=== PATIENT | female | born 1985 | race Caucasian/White ===

== ENCOUNTER 2021-07-12 20:59 | Emergency (ER) | payer BC ==
[2021-07-12 21:30] VITALS: RESP 18; TEMP 98.6
[2021-07-12] MEDS ORDERED: SODIUM CHLORIDE 0.9% 1,000 ML IV STA (21:56)
[2021-07-12] MEDS ORDERED: ONDANSETRON 4 MG/2 ML VIAL IVP STA (21:56)
--- NOTE | 2021-07-12 22:07 | ED ---
General Adult HPI - General Chief complaint: Dizziness Stated complaint: Dizzy,Vomiting Time Seen by Provider: 07/12/21 21:41 Source: patient, RN notes reviewed Mode of arrival: wheelchair Limitations: no limitations - History of Present Illness Initial comments: 35-year-old female presents to the emergency department for evaluation of dizziness, onset this morning. Patient states she woke up feeling mildly dizzy, but states it improved throughout the day. States this evening she attempted to lay down in bed and her symptoms recurred. Describes feeling as if the room was spinning around her. Patient reports feeling like she needed to grasp the sheets on either side of her in order to remain still. States her symptoms were accompanied by profound nausea and one episode of vomiting. Denies fever, chills, headache, blurry vision, chest pain, difficulty breathing, shortness of breath, palpitations, abdominal pain, diarrhea, dysuria or hematuria. No new medications, sick exposures, or hormone changes. - Related Data Previous Rx's Medication Instructions Recorded Meclizine [Antivert] 25 mg PO TID PRN 5 Days #15 tab 07/13/21 Allergies Allergy/AdvReac Type Severity Reaction Status Date / Time amdinocillin Allergy Unknown Verified 07/12/21 22:53 Childhood Penicillins Allergy Unknown Verified 07/12/21 22:53 Childhood Review of Systems ROS Statement: Those systems with pertinent positive or pertinent negative responses have been documented in the HPI. ROS Other: All systems not noted in ROS Statement are negative. Past Medical History Past Medical History: Cancer Additional Past Medical History / Comment(s): Cervical Cancer History of Any Multi-Drug Resistant Organisms: None Reported Past Surgical History: Section, Hysterectomy Past Psychological History: No Psychological Hx Reported Smoking Status: Current every day smoker Past Alcohol Use History: Occasional Past Drug Use History: None Reported General Exam Limitations: no limitations (Well-developed, well-nourished female in no acute distress. Initial temperature 98.6, pulse 75, respirations 18, blood pressure 133/89, pulse ox 99% on room air.) General appearance: alert, in no apparent distress Eye exam: Present: normal appearance, PERRL, EOMI. Absent: scleral icterus, conjunctival injection, nystagmus, periorbital swelling Pupils: Present: normal accommodation ENT exam: Present: normal exam, normal oropharynx, mucous membranes moist, TM's normal bilaterally Neck exam: Present: normal inspection, full ROM. Absent: tenderness, meningismus, lymphadenopathy Respiratory exam: Present: normal lung sounds bilaterally. Absent: respiratory distress, wheezes, rales, rhonchi, stridor, chest wall tenderness Cardiovascular Exam: Present: regular rate, normal rhythm, normal heart sounds. Absent: systolic murmur, diastolic murmur, rubs, gallop, clicks GI/Abdominal exam: Present: soft, normal bowel sounds. Absent: distended, tende rness, guarding, rebound, rigid Neurological exam: Present: alert, oriented X3 Expanded Patient oriented to: Present: person, place, time Speech: Present: fluid speech Cranial nerves: EOM's Intact: Normal Motor strength exam: RUE: 5, LUE: 5, RLE: 5, LLE: 5 Eye Response: (4) open spontaneously Motor Response: (6) obeys commands Verbal Response: (5) oriented [place] Total: 15 Psychiatric exam: Present: normal affect, normal mood Skin exam: Present: warm, dry, intact, normal color Course Vital Signs 07/12/21 07/13/21 21:26 00:31 Temperature 98.6 F Pulse Rate 75 65 Respiratory 18 18 Rate Blood Pressure 133/89 113/76 O2 Sat by Pulse 99 98 Oximetry - Reevaluation(s) Reevaluation #1: 07/12/21 23:16 Upon reevaluation, patient has received a liter of IV fluids and 4 mg of Zofran. States her nausea has resolved but still feels dizzy with eye movement and position change. Discussed CT of the brain or treatment with meclizine. Initially patient was interested in CT, however, would prefer the oral medicati on instead. 07/13/21 00:04 Patient reports significant improvement with meclizine. She will be given an additional dose prior to departure. Medical Decision Making - Medical Decision Making 35-year-old female with no significant past medical history presents to the emergency department for evaluation of dizziness. Upon exam, patient is well- appearing and in no acute distress. She complains of exacerbation of symptoms with position change. Symptomology is vertiginous in nature, however patient does not have a history of vertigo. Physical exam findings are negative. Tympanic membranes are nonerythematous and nonbulging. Patient was given IV fluids, Zofran, and meclizine with significant improvement. I did discuss CT of the brain, however because the patient had such improvement with the meclizine she opted to forego a CT. EKG showed normal rhythm. Chest x-ray was negative. Laboratory studies were unremarkable. Patient will be discharged home with a prescription for meclizine and instructed to follow up with her PCP for a recheck. Return parameters were discussed in detail. Patient verbalizes understanding and agrees with this plan. Attending: Beronica. - Lab Data Result diagrams: 07/12/21 22:07/12/21 22: Lab Results 07/12/21 07/12/21 07/12/21 Range/Units : 22:: WBC 11.5 H (3.8-10.6) k/uL RBC 4.76 (3.80-5.40) m/uL Hgb 15.5 (11.4-16.0) gm/dL Hct 44.2 (34.0-46.0) % MCV 93.0 (80.0-100.0) fL MCH 32.6 (25.0-35.0) pg MCHC 35.1 (31.0-37.0) g/dL RDW 11.9 (11.5-15.5) % Plt Count 209 (150-450) k/uL MPV 8.2 Neutrophils % 73 % Lymphocytes % 19 % Monocytes % 4 % Eosinophils % 2 % Basophils % 1 % Neutrophils # 8.4 H (1.3-7.7) k/uL Lymphocytes # 2.2 (1.0-4.8) k/uL Monocytes # 0.4 (0-1.0) k/uL Eosinophils # 0.2 (0-0.7) k/uL Basophils # 0.1 (0-0.2) k/uL Sodium 137 (137-145) mmol/L Potassium 4.0 (3.5-5.1) mmol/L Chloride 103 (98-107) mmol/L Carbon Dioxide 27 (22-30) mmol/L Anion Gap 7 mmol/L BUN 14 (7-17) mg/dL Creatinine 0.91 (0.52-1.04) mg/dL Est GFR (CKD-EPI)AfAm >90 (>60 ml/min/1.73 sqM) Est GFR (CKD-EPI)NonAf 82 (>60 ml/min/1.73 sqM) Glucose 102 H (74-99) mg/dL Calcium 9.5 (8.4-10.2) mg/dL Troponin I (0.000-0.034) ng/mL Urine Color Yellow Urine Appearance Clear (Clear) Urine pH 8.5 H (5.0-8.0) Ur Specific [place] 1.027 (1.001-1.035) Urine Protein 1+ H (Negative) Urine Glucose (UA) Negative (Negative) Urine Ketones Negative (Negative) Urine Blood Negative (Negative) Urine Nitrite Negative (Negative) Urine Bilirubin Negative (Negative) Urine Urobilinogen 2.0 (<2.0) mg/dL Ur Leukocyte Esterase Negative (Negative) Urine RBC 1 (0-5) /hpf Urine WBC 2 (0-5) /hpf Ur Squamous Epith Cells 4 (0-4) /hpf Urine Mucus Few H (None) /hpf 07/12/21 Range/Units 22:27 WBC (3.8-10.6) k/uL RBC (3.80-5.40) m/uL Hgb (11.4-16.0) gm/dL Hct (34.0-46.0) % MCV (80.0-100.0) fL MCH (25.0-35.0) pg MCHC (31.0-37.0) g/dL RDW (11.5-15.5) % Plt Count (150-450) k/uL MPV Neutrophils % % Lymphocytes % % Monocytes % % Eosinophils % % Basophils % % Neutrophils # (1.3-7.7) k/uL Lymphocytes # (1.0-4.8) k/uL Monocytes # (0-1.0) k/uL Eosinophils # (0-0.7) k/uL Basophils # (0-0.2) k/uL Sodium (137-145) mmol/L Potassium (3.5-5.1) mmol/L Chloride (98-107) mmol/L Carbon Dioxide (22-30) mmol/L Anion Gap mmol/L BUN (7-17) mg/dL Creatinine (0.52-1.04) mg/dL Est GFR (CKD-EPI)AfAm (>60 ml/min/1.73 sqM) Est GFR (CKD-EPI)NonAf (>60 ml/min/1.73 sqM) Glucose (74-99) mg/dL Calcium (8.4-10.2) mg/dL Troponin I <0.012 (0.000-0.034) ng/mL Urine Color Urine Appearance (Clear) Urine pH (5.0-8.0) Ur Specific [place] (1.001-1.035) Urine Protein (Negative) Urine Glucose (UA) (Negative) Urine Ketones (Negative) Urine Blood (Negative) Urine Nitrite (Negative) Urine Bilirubin (Negative) Urine Urobilinogen (<2.0) mg/dL Ur Leukocyte Esterase (Negative) Urine RBC (0-5) /hpf Urine WBC (0-5) /hpf Ur Squamous Epith Cells (0-4) /hpf Urine Mucus (None) /hpf - EKG Data EKG shows normal: sinus rhythm Rate: normal EKG Comments: EKG was obtained at 2139 showing normal sinus rhythm. Ventricular rate 69, CA interval 138, QRS duration 89, QT/QTc 395/414. Interpretation normal ECG. - Radiology Data Radiology results: report reviewed, image reviewed Two-view chest x-ray was obtained. Report was reviewed in its entirety. Impre ssion per Dr. Beyer as normal chest. Disposition Clinical Impression: Vertigo Disposition: HOME SELF-CARE Condition: Stable Instructions (If sedation given, give patient instructions): Vertigo (ED) Additional Instructions: Remain hydrated. Consider electrolyte solutions if vomiting. Take meclizine for dizziness. Follow-up with your PCP for a recheck on Sunday. Return to the emergency department with any new, worsening, or concerning symptoms. Prescriptions: Meclizine [Antivert] 25 mg PO TID PRN 5 Days #15 tab PRN Reason: Vertigo Is patient prescribed a controlled substance at d/c from ED?: No Referrals: Kyle Lake DO [Primary Care Provider] - 1-2 days Time of Disposition: 00:24
--- NOTE | 2021-07-12 22:30 | XR ---
EXAMINATION TYPE: XR chest 2V DATE OF EXAM: 07/12/2021 COMPARISON: NONE HISTORY: Dizziness. Vomiting TECHNIQUE: 2 view FINDINGS: Heart and mediastinum are normal. Lungs are clear. Diaphragm is normal. Bony thorax appears normal. There are chest leads. IMPRESSION: Normal chest.
[2021-07-12 22:37] LABS: Basophils # (A) 0.1 k/uL (0-0.2); Basophils % (A) 1 %; Eosinophils # (A) 0.2 k/uL (0-0.7); Eosinophils % (A) 2 %; HCT 44.2 % (34.0-46.0); HGB 15.5 gm/dL (11.4-16.0); Lymphocytes # (A) 2.2 k/uL (1.0-4.8); Lymphocytes % (A) 19 %; MCH 32.6 pg (25.0-35.0); MCHC 35.1 g/dL (31.0-37.0); Mean Platelet Volume 8.2; Monocytes # (A) 0.4 k/uL (0-1.0); Monocytes % (A) 4 %; Neutrophils # (A) 8.4 k/uL (1.3-7.7); Neutrophils % (A) 73 %; Platelet Count 209 k/uL (150-450); RBC 4.76 m/uL (3.80-5.40); RDW 11.9 % (11.5-15.5); WBC 11.5 k/uL (3.8-10.6)
[2021-07-12 22:38] LABS: Appearance,Urine Clear (Clear); Bilirubin,Urine Negative (Negative); Blood,Urine Negative (Negative); Color,Urine Yellow; Glucose,Urine (UA) Negative (Negative); Ketones,Urine Negative (Negative); Leukocyte Esterase,Urine Negative (Negative); Mucus,Urine Few /hpf; Nitrite,Urine Negative (Negative); PH, Urine 8.5 (5.0-8.0); Protein,Urine 1+ (Negative); RBC,Urine 1 /hpf (0-5); Specific Gravity,Urine 1.027 (1.001-1.035); Squamous Epithelial Cell,Urine 4 /hpf (0-4); WBC,Urine 2 /hpf (0-5)
[2021-07-12 22:46] LABS: African American GFR (CKD) >90 (>60 ml/min/1.73 sqM); Anion Gap 7 mmol/L; Blood Urea Nitrogen 14 mg/dL (7-17); Calcium 9.5 mg/dL (8.4-10.2); Carbon Dioxide 27 mmol/L (22-30); Chloride 103 mmol/L (98-107); Glucose 102 mg/dL (74-99); Non-African American GFR(CKD) 82 (>60 ml/min/1.73 sqM); Sodium 137 mmol/L (137-145)
[2021-07-12] MEDS ORDERED: MECLIZINE 12.5 MG TAB PO STA (23:23)
[2021-07-13] MEDS ORDERED: MECLIZINE 12.5 MG TAB PO STA (00:21)
[2021-07-13 00:34] VITALS: BP 113/76; PULSE 65
== END 2021-07-13 00:55 | disposition home or self-care (01) ==
LOC: EC 20:59
DX: R42 Dizziness and giddiness (principal); F17.200 Nicotine dependence, unspecified, uncomplicated; Z88.0 Allergy status to penicillin
CPT/HCPCS: 36415; 93005; 80048; 84484; 85025; 81001; 71046; 99284; 96374; J2405